=== PATIENT | female | born 1960 | race Two or more races ===

== ENCOUNTER 2019-09-03 07:12 | Emergency (ER) | payer OTHER ==
[2019-09-03 07:42] VITALS: BMI 34.7
[2019-09-03] MEDS ORDERED: IBUPROFEN 600 MG TABLET (FP) PO ONE ×2 (08:01→08:41)
--- NOTE | 2019-09-03 08:50 | PDOC ---
History of Present Illness - General Chief Complaint: Respiratory Stated Complaint: CONGESTION,ELEVATED BLOOD PRESSURE Time Seen by Provider: 09/03/19 08:01 History Source: Patient Exam Limitations: No Limitations - History of Present Illness Initial Comments: 09/03/19 08:00 59-year-old female presents to ED with complaints of sore throat, fever, chills , headache, myalgia and burning discomfort to her midsternal area with coughing. Patient denies recent travel and states has history of hypertension and took her medications this morning. Patient also denies any recent sick contacts recent illness, recent change in medication. Is this a multiple visit Asthma Patient?: No Timing/Duration: reports: yesterday Severity: reports: mild Possible Cause: Yes: no prior episodes Modifying Factors: improves with: coughing Associated Symptoms: reports: chest pain/soreness, cough, fever/chills, headache , muscle aches, sore throat Past History - Travel Traveled outside of the country in the last 30 days: No Close contact w/someone who was outside of country & ill: No - Past Medical History Allergies/Adverse Reactions: Allergies Allergy/AdvReac Type Severity Reaction Status Date / Time No Known Allergies Allergy Verified 09/03/19 07:38 Home Medications: Ambulatory Orders Aspirin Coated [Ecotrin] 81 mg PO DAILY 11/26/11 Levothyroxine [Synthroid] 125 mcg PO DAILY 11/26/11 Losartan Potassium 100 mg PO DAILY 09/03/19 Anemia: No Asthma: No Cancer: No Cardiac Disorders: No CVA: No COPD: No CHF: No Dementia: No Diabetes: No GI Disorders: No Disorders: No HTN: Yes Hypercholesterolemia: Yes (HYPERLIPIDEMIA) Liver Disease: Yes (FATTY LIVER) Seizures: No Thyroid Disease: Yes (HYPOTHYROID DISEASE) - Surgical History Abdominal Surgery: No Appendectomy: No Cardiac Surgery: No Cholecystectomy: No Lung Surgery: No Neurologic Surgery: No - Psycho Social/Smoking Cessation Hx Smoking Status: No Smoking History: Never smoked Have you smoked in the past 12 months: No Number of Cigarettes Smoked Daily: 0 Hx Alcohol Use: No Drug/Substance Use Hx: No Substance Use Type: None Hx Substance Use Treatment: No Patient Lives Alone: No Lives with/in: spouse/SO Respiratory Specific PMHX - Complaint Specific PMHX Hx Smoking Exposure: Yes Hx Bronchitis: Yes Hx Pneumonia: Yes Review of Systems - Review of Systems Able to Perform ROS?: Yes Constitutional: Yes: Chills, Fever, Weakness HEENTM: Yes: Throat Pain Respiratory: Yes: Cough Cardiac (ROS): No: Symptoms Reported ABD/GI: No: Symptoms Reported : No: Symptoms Reported Musculoskeletal: Yes: Joint Pain, Muscle Pain Integumentary: No: Symptoms Reported Neurological: Yes: Headache Endocrine: No: Symptoms Reported Hematologic/Lymphatic: No: Symptoms Reported *Physical Exam - Vital Signs Last Vital Signs Temp Pulse Resp BP Pulse Ox 98.2 F 94 H 16 155/104 H 96 09/03/19 07:32 09/03/19 07:32 09/03/19 07:32 09/03/19 07:32 09/03/19 07:32 - Physical Exam General Appearance: Yes: Nourished, Appropriately Dressed. No: Apparent Distress HEENT: positive: TMs Normal, Pharynx Normal, Pale Conjunctivae Neck: positive: Normal Thyroid, Supple Respiratory/Chest: positive: Lungs Clear, Normal Breath Sounds. negative: Respiratory Distress, Accessory Muscle Use Cardiovascular: positive: Regular Rhythm, Regular Rate. negative: Murmur Gastrointestinal/Abdominal: positive: Soft. negative: Tenderness Extremity: positive: Normal Inspection Integumentary: positive: Normal Color, Warm, Moist Neurologic: positive: Normal Mood/Affect, Motor Strength 5/5 (ambulatory) Medical Decision Making - Medical Decision Making 09/03/19 08:31 . Chief complaint: URI symptoms since yesterday patient history of hypertension and with mildly elevated BP in triage. Patient states has not taken any medication that would increase her blood pressure such as Robitussin and other antitussive medications Exam: Slightly elevated BP afebrile, lungs clear to auscultation plan: Motrin and influenza swab sent 09/03/19 08:53 Laboratory Tests 09/03/19 08:11 Influenza A (Rapid) Negative Influenza B (Rapid) Negative Patient states feeling better. Patient will be discharged home with azithromycin for treatment of bronchitis Discharge - Discharge Information Problems reviewed: Yes Clinical Impression/Diagnosis: Bronchitis Condition: Improved Disposition: HOME - Follow up/Referral - Patient Discharge Instructions Patient Printed Discharge Instructions: DI for Acute Bronchitis Additional Instructions: Please take antibiotics as prescribed along with medication to stop the coughing. Drink plenty of fluids, use throat lozenges and eat soft foods. - Post Discharge Activity
[2019-09-03 08:58] VITALS: BP 154/95; PULSE 105; TEMP 98.7
== END 2019-09-03 09:05 | disposition home or self-care (01) ==
LOC: JER 07:12
DX: J20.9 Acute bronchitis, unspecified (principal); I10 Essential (primary) hypertension; E78.5 Hyperlipidemia, unspecified; E03.9 Hypothyroidism, unspecified; K76.0 Fatty (change of) liver, not elsewhere classified
CPT/HCPCS: 87804; 99283-25

== ENCOUNTER 2022-07-15 04:39 | Day surgery (SDC) | payer OTHER ==
[2022-07-14 14:29] VITALS: BMI 33.2
[2022-07-15 11:56] VITALS: BP 179/91; PULSE 71; RESP 13
[2022-07-15 14:22] VITALS: TEMP 98
== END 2022-07-15 11:20 | disposition home or self-care (01) ==
LOC: JASU-ENDO 04:39
PROVIDERS: ATTEND Internal Medicine Gastroenterology
PROC: 0DJD8ZZ Inspection of Lower Intestinal Tract, Via Natural or Artificial Opening Endoscopic (ICD-10-PCS; principal; 2022-07-15 10:45)
DX: Z12.11 Encounter for screening for malignant neoplasm of colon (principal); Z86.010 Personal history of colon polyps; I10 Essential (primary) hypertension; E11.9 Type 2 diabetes mellitus without complications
CPT/HCPCS: 82962

== ENCOUNTER 2025-03-03 10:31 | Observation (INO) | payer OTHER ==
[2025-03-03 12:00] LABS: ABSOLUTE IMMATURE GRANULOCYTES 0.03 x10^3/uL (0.0-0.031); BASOPHILS # 0.09 x10^3/uL (0.01-0.08); EOSINOPHIL % 5.0 % (0.7-5.8); EOSINOPHILS # 0.32 x10^3/uL (0.04-0.36); MCHC 33.0 g/dl (32.2-35.5); MEAN CELL VOLUME 87.7 fl (79.4-94.8); MEAN PLT VOLUME 10.8 fl (9.4-12.3); MONOCYTE # 0.52 x10^3/uL (0.24-0.86); MONOCYTE % 8.1 % (4.7-12.5); RDW 12.2 % (12.4-16.4)
[2025-03-03 12:07] LABS: INR 1.08 (0.83-1.09); PROTHROMBIN TIME (PATIENT) 11.8 SEC (9.7-13.0)
[2025-03-03 12:10] LABS: ACTIVATED PTT 30.5 SECONDS (25.2-36.5)
[2025-03-03 12:11] LABS: CO2 28.0 mmol/L (21-32)
[2025-03-03 12:12] LABS: GLUCOSE,RANDOM 155.0 mg/dL (74-106)
[2025-03-03 12:14] LABS: CREATININE 1.1 mg/dL (0.55-1.3); SGOT/AST 24.0 U/L (15-37); SGPT/ALT 32.0 U/L (13-61)
[2025-03-03 12:16] LABS: LDL CHOLESTEROL (ONLY SJRH) 84.0 mg/dL (5-100); TOT PROT 6.4 g/dl (6.4-8.2)
[2025-03-03 12:18] LABS: ALK PHOS 70.0 U/L (45-117)
[2025-03-03] MEDS: SODIUM CHLORIDE 0.9% 500 ML INFUS.BAG IV ONE (12:45)
[2025-03-03] MEDS ORDERED: ACETAMINOPHEN INJECTION 100 ML ONE (12:45)
[2025-03-03] MEDS: ACETAMINOPHEN 1000 MG/100 ML BAG IVPB ONE (13:14)
[2025-03-03 13:25] LABS: EPI CELLS 4 /uL (0-25.1); HYALINE CASTS 0 /uL (0-3.1); URINE APPEARANCE CLEAR; URINE BACTERIA 16 /uL (0-1359); URINE BILIRUBIN NEGATIVE (NEGATIVE); URINE COLOR YELLOW; URINE GLUCOSE (UA) NEGATIVE (NEGATIVE); URINE KETONE NEGATIVE (NEGATIVE); URINE LEUK ESTERASE TRACE (NEGATIVE); URINE NITRITE NEGATIVE (NEGATIVE); URINE PROTEIN NEGATIVE (NEGATIVE); URINE RBC 15 /uL (0-23.9); URINE UROBILINOGEN 0.2 mg/dL (0.2-1.0); URINE WBC 8 /uL (0-25.8)
[2025-03-03] MEDS ORDERED: ASPIRIN 81 MG CHEWABLE TABLETS ONE (15:24)
[2025-03-03] MEDS: ASPIRIN COATED 81 MG TABLET.EC PO ONE (15:34)
[2025-03-03 16:25] VITALS: BMI 32.8
[2025-03-03] MEDS: ATORVASTATIN CA 10 MG TABLET (FP) PO SCH (21:31)
[2025-03-03] MEDS: MONTELUKAST NA 10 MG TABLET PO SCH (21:31)
[2025-03-04 09:30] LABS: ABSOLUTE IMMATURE GRANULOCYTES 0.03 x10^3/uL (0.0-0.031); BASOPHILS # 0.11 x10^3/uL (0.01-0.08); EOSINOPHIL % 6.2 % (0.7-5.8); EOSINOPHILS # 0.43 x10^3/uL (0.04-0.36); MCHC 33.4 g/dl (32.2-35.5); MEAN CELL VOLUME 87.0 fl (79.4-94.8); MEAN PLT VOLUME 11.1 fl (9.4-12.3); MONOCYTE # 0.55 x10^3/uL (0.24-0.86); MONOCYTE % 7.9 % (4.7-12.5); RDW 12.3 % (12.4-16.4)
[2025-03-04] MEDS: ENOXAPARIN NA (PORCINE) 40 MG/0.4 ML DISP.SYRIN SQ SCH (09:38)
[2025-03-04] MEDS: ASPIRIN 81 MG CHEWABLE TABLETS PO SCH (09:39)
[2025-03-04] MEDS: HYDROCHLOROTHIAZIDE 25 MG TABLET (FP) PO SCH (09:40)
[2025-03-04] MEDS: LOSARTAN POTASSIUM 50 MG TABLET PO SCH (09:40)
[2025-03-04] MEDS: FENOFIBRIC ACID 45 MG CAP PO SCH (09:40)
[2025-03-04 10:42] LABS: CO2 26.0 mmol/L (21-32); GLUCOSE,RANDOM 122.0 mg/dL (74-106)
[2025-03-04 10:45] LABS: CREATININE 0.9 mg/dL (0.55-1.3); SGOT/AST 22.0 U/L (15-37); SGPT/ALT 33.0 U/L (13-61)
[2025-03-04 10:46] LABS: LDL CHOLESTEROL (ONLY SJRH) 93.0 mg/dL (5-100); TOT PROT 7.1 g/dl (6.4-8.2)
[2025-03-04 10:48] LABS: ALK PHOS 69.0 U/L (45-117)
[2025-03-04] MEDS: amLODIPine BESYLATE 5 MG TABLET (FP) PO SCH (12:14)
[2025-03-04] MEDS: amLODIPine BESYLATE 5 MG TABLET (FP) PO ONE (16:09)
[2025-03-04 16:39] VITALS: BP 147/91; PULSE 90; RESP 20; TEMP 98.7
[2025-03-05] MEDS ORDERED: amLODIPine BESYLATE 10 MG TABLET (FP) PO SCH (10:00)
== END 2025-03-04 19:33 | disposition home or self-care (01) ==
LOC: JER 10:31 → UNDOADMOB 13:37 → JERBED 13:37 → INTOOBSV 13:37 → JERBED 13:43 → J5S 15:55
PROVIDERS: ADMIT Student in an Organized Health Care Education/Training Program
PROC: 3E033NZ Introduction of Analgesics, Hypnotics, Sedatives into Peripheral Vein, Percutaneous Approach (ICD-10-PCS; principal; 2025-03-03)
PROC: 3E023GC Introduction of Other Therapeutic Substance into Muscle, Percutaneous Approach (ICD-10-PCS; 2025-03-03)
PROC: 3E0337Z Introduction of Electrolytic and Water Balance Substance into Peripheral Vein, Percutaneous Approach (ICD-10-PCS; 2025-03-03)
DX: G43.109 Migraine with aura, not intractable, without status migrainosus (principal); G44.89 Other headache syndrome; R20.2 Paresthesia of skin; I10 Essential (primary) hypertension; E78.5 Hyperlipidemia, unspecified; E11.9 Type 2 diabetes mellitus without complications; E03.9 Hypothyroidism, unspecified; J44.9 Chronic obstructive pulmonary disease, unspecified
CPT/HCPCS: 36415; 70450-TC; 70496-TC; 70498-TC; 70551-TC; 80053; 80061; 81003; 82550; 82962; 83036; 83735; 84100; 84443; 84484; 85025; 85610; 85730; 86803; 86850; 86900; 86901; 93005; 93010; 93306-TC; 96372; 96374; 99285-25; G0378